=== PATIENT | male | born 1985 | race Caucasian/White ===

== ENCOUNTER → 2019-02-13 08:33 | Outpatient (CLI) | payer OTHER, SELFPAY ==
--- NOTE | 2019-02-13 08:35 | DI.US.S_ITS ---
PROCEDURE: US ABDOMEN LIMITED INDICATIONS: R INGUINAL/UPPER THIGH SWELLING, R/O HERNIA/PHLEBITIS TECHNIQUE: Real-time focused scanning was performed of the abdomen, with image documentation. COMPARISON: None. FINDINGS: Nonspecific area of echogenic/edematous appearance seen in the area of concern. No definite hernia identified. IMPRESSION: Ill-defined nonspecific echogenic/edematous tissue in the right inguinal region raising the possibility of cellulitis and/or possible superficial thrombophlebitis although technically nonspecific. Consider ultrasound followup after treatment to document resolution or improvement. No definite hernia Dictated by: Fahad Adame M.D. on 02/13/2019 at 10:15 Approved by: Fahad Adame M.D. on 02/13/2019 at 10:17
== END ==
PROVIDERS: Visit Provider Physician Assistant
DX: R19.09 Other intra-abdominal and pelvic swelling, mass and lump (principal)
CPT/HCPCS: 76705

== ENCOUNTER → 2020-03-18 08:22 | Outpatient (CLI) | payer OTHER, SELFPAY ==
[2020-03-18 09:32] LABS: COVID19 -Nasal RAPID Negative (Negative)
== END ==
PROVIDERS: PCP Registered Nurse; Visit Provider Family Medicine Sleep Medicine
DX: Z11.59 Encounter for screening for other viral diseases (principal)
CPT/HCPCS: 87635; C9803

== ENCOUNTER → 2020-04-17 14:10 | Outpatient (CLI) | payer OTHER, SELFPAY ==
[2020-04-17 14:53] LABS: COVID19 -Nasal RAPID Negative (Negative)
== END ==
PROVIDERS: PCP Registered Nurse; Visit Provider Family Medicine Sleep Medicine
DX: Z01.812 Encounter for preprocedural laboratory examination (principal); Z20.828 Contact with and (suspected) exposure to other viral communicable diseases
CPT/HCPCS: 87635; C9803

== ENCOUNTER 2021-10-07 13:54 | Emergency (ER) | payer OTHER, SELFPAY ==
[2021-10-07 13:57] VITALS: BP 161/97; PULSE 102; RESP 16; TEMP 36.3; O2SAT 98; BMI 43.7
--- NOTE | 2021-10-07 16:43 | DI.US.S_ITS ---
PROCEDURE: US SCROTUM INDICATIONS: testicle pain TECHNIQUE: Real-time scanning was performed of the scrotum and testicles, with image documentation. Color and pulse Doppler interrogation was performed of both testicles. COMPARISON: None. FINDINGS: Right: Testicle is normal in size at 4.7 x 2.5 x 2.8 cm, and homogenous in echotexture. Epididymis is normal in overall size and morphology. No hydrocele or varicoceles. Overlying scrotal skin is normal in thickness. Left: Testicle is normal in size at 4.5 x 2.1 x 2.2 cm, and homogeneous in echotexture. Scattered microlithiasis along the medial aspect of the testicle. Epididymis is normal in overall size and morphology. No hydrocele or varicoceles. Overlying scrotal skin is normal in thickness. Doppler: Color and pulse Doppler demonstrate normal and symmetric arterial flow in both testicles. IMPRESSION: 1. Testicles are symmetric in size and vascular flow. 2. 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 This may be vascular in origin. Dictated by: Irina Terrell M.D. on 10/07/2021 at 18:10 Approved by: Irina Terrell M.D. on 10/07/2021 at 18:13
--- NOTE | 2021-10-07 18:11 | ED.MALEGU ---
HPI - Male Genitourinary <Rodríguez Dawson PA-C - Last Filed: 10/07/21 19:54> General Chief complaint: Urogenital-Male Stated complaint: Left side testicular pain x 2 wks, worsening Time Seen by Provider: 10/07/21 17:30 Source: patient Mode of arrival: Ambulatory History of Present Illness HPI Narrative: Patient is a 36-year-old male who presents to the emergency department for evaluation of left testicular pain. Patient explains that over the past couple of weeks he has been experiencing gradually worsening left testicular pain. Additionally, he states that he has had difficulty initiating micturition and reports that he experiences a ?pressure sensation? that makes him feel as if he has to evacuate his bowels. He states that he awoke today with a sharp pain in his left testicle and explains that the pain is exacerbated when he is lying or sitting down. Of note, he denies any trauma or injury to the area that could explain his symptoms. He denies fever, chills, chest pain, cough, shortness of breath, nausea, vomiting, diarrhea, constipation, abdominal pain, dysuria, hematuria, or any other concerning symptoms. No further concerns were voiced at this time. Related Data Home Medications Medication Instructions Recorded Confirmed bupropion HCl 150 mg 24 hr tablet, 150 mg PO QAM 09/29/21 09/29/21 extended release (Wellbutrin XL) Allergies Allergy/AdvReac Type Severity Reaction Status Date / Time No Known Drug Allergies Allergy Verified 10/07/21 13:57 Review of Systems <Rodríguez Dawson PA-C - Last Filed: 10/07/21 19:54> Constitutional Constitutional: Denies chills, Denies fatigue, Denies fever(s), Denies frequent falls, Denies lethargy and Denies weakness ENT Ears, Nose, Mouth, and Throat: Denies neck pain Cardiovascular Cardiovascular: Denies chest pain, Denies irregular heart rhythm, Denies lightheadedness, Denies palpitations, Denies dyspnea, Denies dyspnea on exertion and Denies orthopnea Respiratory Respiratory: Denies cough, Denies dyspnea, Denies dyspnea on exertion and Denies wheezing Gastrointestinal Gastrointestinal: Denies abdominal pain, Denies change in bowel habits, Denies diarrhea, Denies nausea and Denies vomiting Genitourinary Genitourinary: Denies hematuria, Reports difficulty urinating, Denies flank pain, Denies testicular mass, Reports testicular pain, Denies urinary incontinence and Denies urinary urgency Musculoskeletal Musculoskeletal: Denies back pain, Denies muscle weakness, Denies neck pain, Denies numbness and Denies tingling Integumentary/Breasts Skin/Breast: Denies pruritus, Denies erythema, Denies rash and Denies wounds Neurologic Neurologic: Denies frequent falls, Denies numbness, Denies tingling and Denies weakness Endocrine Endocrine: Denies fatigue and Denies palpitations Allergic/Immunologic Allergic/Immunologic: Denies wheezing Patient History <Rodríguez Dawson PA-C - Last Filed: 10/07/21 19:54> Medical History Excessive daytime sleepiness GERD (gastroesophageal reflux disease) Insomnia Obesity, morbid, BMI 40.0-49.9 Obstructive sleep apnea Shift work sleep disorder Snoring Solitary kidney, congenital Surgical History Status post appendectomy Family History Mother Diabetes mellitus Father Hypertension Social History Smoking Status: Current some day smoker Smoking Status: Current some day smoker tobacco type: cigars alcohol intake frequency: a few times a week Substance Use Type: does not use Exam <Rodríguez Dawson PA-C - Last Filed: 10/07/21 19:54> Narrative Exam Narrative: GENERAL: 36 year old patient appears stated age. Well-developed patient, in no acute distress. HEAD: Atraumatic. Normocephalic. EYES: Pupils equal round and reactive. Extraocular motions intact. No scleral icterus. No injection or drainage. ENT: Nose without bleeding, purulent drainage. Throat without erythema, tonsillar hypertrophy or exudate. Airway patent. NECK: Trachea midline. Non tender CARDIOVASCULAR: Regular rate and rhythm without murmurs, gallops, or rubs. RESPIRATORY: Clear to auscultation. Breath sounds equal bilaterally. No wheezes, rales, or rhonchi. GASTROINTESTINAL: Abdomen soft, non-tender, nondistended. GENITOURINARY: No swelling or erythema noted about the scrotum. No masses appreciated on the testes bilaterally. No significant tenderness to palpation of the testes bilaterally. No swelling of the penis or active penile discharge appreciated. EXTREMITIES: No edema or joint tenderness. BACK: Nontender without deformity or crepitance. No flank tenderness. NEURO: AOx3. SKIN: No rash or erythema of visible areas Initial Vital Signs Initial Vital Signs: Vital Signs Temperature 97.3 F L 10/07/21 13:57 Pulse Rate 102 H 10/07/21 13:57 Respiratory Rate 16 10/07/21 13:57 Blood Pressure 161/97 H 10/07/21 13:57 Pulse Oximetry 98 10/07/21 13:57 Oxygen Delivery Method 10/07/21 13:57 <DO Iqra Lay Last Filed: 10/08/21 07:33> Initial Vital Signs Initial Vital Signs: Vital Signs Temperature 97.3 F L 10/07/21 13:57 Pulse Rate 102 H 10/07/21 13:57 Respiratory Rate 16 10/07/21 13:57 Blood Pressure 161/97 H 10/07/21 13:57 Pulse Oximetry 98 10/07/21 13:57 Oxygen Delivery Method 10/07/21 13:57 Course <Rodríguez Dawson PA-C - Last Filed: 10/07/21 19:54> Course Course Narrative: Urine dip and scrotal ultrasound obtained. Orders Ordered: ED Orders 10/07/21 16:43 US scrotum Stat Vital Signs Vital signs: Vital Signs - 8 hr 10/07/21 13:57 10/07/21 18:40 Temperature 97.3 F L Pulse Rate 102 H 74 Respiratory Rate 16 18 Blood Pressure 161/97 H 148/90 H Pulse Oximetry 98 99 Oxygen Delivery Method Room Air Room Air <DO Iqra Lay Last Filed: 10/08/21 07:33> Orders Ordered: ED Orders 10/07/21 16:43 US scrotum Stat Vital Signs Vital signs: Vital Signs - 8 hr 10/07/21 13:57 10/07/21 18:40 Temperature 97.3 F L Pulse Rate 102 H 74 Respiratory Rate 16 18 Blood Pressure 161/97 H 148/90 H Pulse Oximetry 98 99 Oxygen Delivery Method Room Air Room Air MDM - Male Genitourinary <Rodríguez Dawson PA-C - Last Filed: 10/07/21 19:54> Lab Data Labs: Urine Dip Bedside Urine Glucose Negative Bedside Urine Bilirubin - Negative Bedside Urine Ketone - Negative Urine Specific Holmes 1.020 Bedside Urine Occult Blood - Negative Bedside Urine pH 6.0 Bedside Urine Protein - Negative Bedside Urine Urobilinogen - Negative Bedside Urine Nitrite - Negative Bedside Urine Leukocytes - Negative Esterase Imaging Data US - Scrotal: Radiologist's Impression: PROCEDURE:? US SCROTUM ? INDICATIONS:? testicle pain ? TECHNIQUE:? Real-time scanning was performed of the scrotum and testicles, with image documentation.? Color and pulse Doppler interrogation was performed of both testicles.? ? COMPARISON:? None. ? FINDINGS:? ? Right:? Testicle is normal in size at 4.7 x 2.5 x 2.8 cm, and homogenous in echotexture.? Epididymis is normal in overall size and morphology.? No hydrocele or varicoceles.? Overlying scrotal skin is normal in thickness.? ? Left:? Testicle is normal in size at 4.5 x 2.1 x 2.2 cm, and homogeneous in echotexture.? Scattered microlithiasis along the medial aspect of the testicle.? Epididymis is normal in overall size and morphology.? No hydrocele or varicoceles.? Overlying scrotal skin is normal in thickness.? ? Doppler:? Color and pulse Doppler demonstrate normal and symmetric arterial flow in both testicles.? ? IMPRESSION:? ? 1. Testicles are symmetric in size and vascular flow. ? 2. 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 This may be vascular in origin.? ? ? Dictated by: Irina Terrell M.D. on 10/07/2021 at 18:10 ? ? Approved by: Irina Terrell M.D. on 10/07/2021 at 18:13 ? MDM Narrative Medical decision making narrative: Differential diagnosis to consider but not limited to testicular torsion versus epididymitis versus testicular cancer. I discussed results of scrotal ultrasound patient informed him that it did show signs of left testicular microlithiasis. I informed patient I would be setting up a referral for Urology follow-up, patient understands and agrees to plan. Strict return precautions were discussed with the patient prior to discharge. <Rose Mary Hobson DO - Last Filed: 10/08/21 07:33> Lab Data Labs: Urine Dip Bedside Urine Glucose Negative Bedside Urine Bilirubin - Negative Bedside Urine Ketone - Negative Urine Specific Holmes 1.020 Bedside Urine Occult Blood - Negative Bedside Urine pH 6.0 Bedside Urine Protein - Negative Bedside Urine Urobilinogen - Negative Bedside Urine Nitrite - Negative Bedside Urine Leukocytes - Negative Esterase Discharge Plan Departure Patient Disposition: Home Clinical Impression: Testicular microlithiasis Instructions: How to Perform a Testicular Self-exam Activity Restrictions/Additional Instructions: *You have been diagnosed with left testicular microlithiasis *What to do: *Please continue to take your regular medications as directed. [ ] New medication prescriptions sent to your pharmacy: [ ] [ ] New medication written as a paper prescription [X] No new medications given You were evaluated in the emergency department today for left testicular pain. Ultrasound imaging obtained in the emergency department today did show signs of left testicular microlithiasis. I have set up a referral for Urology follow-up, their office should be reaching out to you to schedule an appointment. Please follow-up with primary care in the meantime for further evaluation and management. Please do not hesitate to return to the emergency department if you experience worsening pain, penile discharge, swelling of the scrotum, or any other concerning symptoms. *Please follow up with your primary care provider in 2-3 days, call for an appointment. Let them know you were seen in the Emergency Department and that we ask that you be seen in follow up. We will electronically transmit a record of today's note if your PCP is in our system *If you do not have a primary care provider please contact the [facility] Resource line at [phone]. They will ask some questions about your medical history and help get you set up with a doctor in the community. *Return to Emergency Department if you should have any new, worsening or concerning symptoms, such as fever greater than 101 F, shaking chills, worsening pain, persistent vomiting or other bothersome symptoms. Prescriptions: No Action bupropion HCl [Wellbutrin XL] 150 mg tablet extended release 24 hr 150 mg PO QAM Referrals: Teresa Saravia MD [Physician] - 5-7 days Gladis Alvarez FNP-SERGIO [Primary Care Provider] - Visit Report Forms: Patient Portal/API <Rose Mary Hobson, - Last Filed: 10/08/21 07:33> [facility] I was immediately available in the department for consultation. Documentation has been reviewed. I agree with assessment and plan.
[2021-10-07 18:40] VITALS: BP 148/90; PULSE 74; RESP 18; O2SAT 99
== END 2021-10-07 18:41 | disposition home or self-care (01) ==
PROVIDERS: Emergency Provider Physician Assistant; PCP Registered Nurse General Practice
DX: N50.89 Other specified disorders of the male genital organs (principal)
CPT/HCPCS: 76870; 81003; 99283